=== PATIENT | male | born 1960 | race Caucasian/White ===

== ENCOUNTER 2018-04-12 05:33 | Emergency (ER) | payer OTHER ==
[2018-04-12] MEDS ORDERED: Aspirin 81 mg CHEW TAB* 81 MG TAB.CHEW PO ONE (05:57)
--- OUTSIDE RECORDS SUMMARY | 2018-04-12 06:16 | XMS REPORT | Continuity of Care Document ---
:1960 External Reference #:[id number] Author Name Catia Dallas Care Team Providers Name Role Phone Lindsay Bethea MD Primary Care Physician Unavailable Payers Type Date Identification Numbers Payment Provider Subscriber Policy Number: [id number] [employer] Sanjeev Perales [employer] Number: [id number] [address] PayID: [id number] [place] [address] Advance Directives Description No Information Available Problems Date Description Provider Status Onset: 09/06/2015 Cardiomyopathy, unspecified Nba Euceda MD, [facility], Active [facility] Onset: 11/12/2017 Lumbar radiculopathy Yovany Swann M.D. Active Onset: 04/01/2018 Polyneuropathy Aaron Baltazar M.D. Active Onset: 04/01/2018 Skin sensation disturbance Aaron Baltazar M.D. Active Onset: 04/01/2018 Low back pain Aaron Baltazar M.D. 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 in winter pt uses recumenbent bike. Allergies, Adverse Reactions, Alerts Date Description Reaction Status Severity Comments 09/06/2015 Soma Active rash/swelling 06/08/2016 Statins Myalgias Active 06/18/2017 Wade Inhibitors [facility] Active Medications Medication Date Status Form Strength Qnty SIG Indications Ordering Provider [id number] 03/08/ Active Chewtabs 1mg 90uni take one Raimundo 2017 ts capsule/table odell Mittal daily M.DLaura sublingually Candesartan 05/24/ Active Tablets 8mg 90tab i by mouth I42.9 Nba Lawson Cilexetil 2018 s daily [facility] Metoprolol 06/08/ Active Tablets ER 50mg 90tab 1 by mouth I51.81 Nba Lawson Succinate ER 2017 24HR s every day MD Euceda FACC, [facility]NABEL Melatonin / Active Capsules 5mg 1 by mouth Unknown 0000 every night prn Fluticasone / Active Suspension 50mcg/Act 2 sprays each Unknown Propionate 0000 nostril daily as needed Tylenol 8 / Active Tablets ER 650mg two tablets Unknown Hour 0000 every 6 hours Arthritis as needed for Pain pains Lisinopril 12/06/ Hx Tablets 10mg 30tab 1 by mouth Nba Lawson 2017 - s every day Sodbirgit, 05/24/ RUBINA PARDO, 2017 [facility] Metoprolol 10/10/ Hx Tablets ER 50mg 90tab 50 mg by I51.81 Nba Lawson Succinate ER 2016 - 24HR s mouth every Sodums, together RUBINA PARDO, 2016 with 25 mg [facility] Metoprolol 09/05/ Hx Tablets ER 25mg 180ta 1 by mouth I42.9 Nba Long. 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1 kg/m2 03/25/2018 10:32am Height 68 inches 5'8" Weight 179.00 lb Heart Rate 88 /min radial, regular BP Systolic 130 mmHg rt arm BP Diastolic 75 mmHg rt arm BMI (Body Mass Index) 27.2 kg/m2 03/25/2018 10:29am Height 68 inches 5'8" Weight 179.50 lb Heart Rate 88 /min radial, regular BP Systolic Sitting 130 mmHg rt arm BP Diastolic Sitting 75 mmHg rt arm BMI (Body Mass Index) 27.3 kg/m2 03/08/2018 9:50am Height 68 inches 5'8" Weight 172.50 lb Heart Rate 88 /min BP Systolic 112 mmHg BP Diastolic 72 mmHg Pain Level 2 O2 % BldC Oximetry 98 % BMI (Body Mass Index) 26.2 kg/m2 02/08/2018 8:47am Height 68 inches 5'8" Weight 176.25 lb Heart Rate 84 /min BP Systolic Sitting 110 mmHg BP Diastolic Sitting 68 mmHg Respiratory Rate 14 /min Body Temperature 98.5 F Pain Level 1 BMI (Body Mass Index) 26.8 kg/m2 11/28/2017 3:12pm Height 68 inches 5'8" Weight 170.00 lb BP Systolic Sitting 122 mmHg BP Diastolic Sitting 60 mmHg Pain Level 4 BMI (Body Mass Index) 25.8 kg/m2 11/12/2017 10:56am Height 68 inches 5'8" Weight 170.00 lb BP Systolic Sitting 130 mmHg BP Diastolic Sitting 70 mmHg Pain Level 3 BMI (Body Mass Index) 25.8 kg/m2 11/07/2017 3:53pm Height 68 inches 5'8" Weight 170.75 lb Heart Rate 72 /min BP Systolic Sitting 114 mmHg BP Diastolic Sitting 82 mmHg Respiratory Rate 16 /min BMI (Body Mass Index) 26.0 kg/m2 06/18/2017 9:22am Height 68 inches 5'8" Weight 176.00 lb w/ shoes Heart Rate 74 /min BP Systolic Sitting 118 mmHg lue large cuff BP Diastolic Sitting 84 mmHg lue large cuff BP Systolic Standing 124 mmHg lue large cuff BP Diastolic Standing 78 mmHg lue large cuff Respiratory Rate 18 /min BMI (Body Mass Index) 26.8 kg/m2 Ejection Fraction 50-55% echo 06/11/17 05/24/2017 1:00pm Height 68 inches 5'8" Weight 175.00 lb w/ boots Heart Rate 68 /min BP Systolic Sitting 122 mmHg lue reg cuff BP Diastolic Sitting 82 mmHg lue reg cuff BP Systolic Standing 132 mmHg lue reg cuff BP Diastolic Standing 78 mmHg lue reg cuff Respiratory Rate 18 /min BMI (Body Mass Index) 26.6 kg/m2 Ejection Fraction 50-55% echo 12/04/16 11/30/2016 11:24am Height 68 inches 5'8" Weight 166.00 lb with shoes Heart Rate 70 /min BP Systolic Sitting 112 mmHg rue reg cuff BP Diastolic Sitting 70 mmHg rue reg cuff BP Systolic Standing 120 mmHg rue reg cuff BP Diastolic Standing 74 mmHg rue reg cuff Respiratory Rate 16 /min BMI (Body Mass Index) 25.2 kg/m2 Ejection Fraction 35-40% echo 08/30/15 06/08/2016 12:52pm Height 68 inches 5'8" Weight 170.00 lb w/ shoes Heart Rate 72 /min reg BP Systolic Sitting 130 mmHg Rue, reg cuff BP Diastolic Sitting 74 mmHg Rue, reg cuff Respiratory Rate 16 /min BMI (Body Mass Index) 25.8 kg/m2 Ejection Fraction 45-50% as of 09/28/15 echo 12/13/2015 2:55pm Height 68 inches 5'8" Weight 159.00 lb Heart Rate 68 /min 78 BP Systolic Sitting 110 mmHg left arm, reg cuff BP Diastolic Sitting 80 mmHg left arm, reg cuff BP Systolic Standing 92 mmHg left arm, reg cuff BP Diastolic Standing 72 mmHg left arm, reg cuff Respiratory Rate 16 /min BMI (Body Mass Index) 24.2 kg/m2 Ejection Fraction 45-50% 09/28/15 10/11/2015 2:52pm Height 68 inches 5'8" Weight 159.00 lb Heart Rate 72 /min 78 BP Systolic Sitting 110 mmHg right arm, reg cuff BP Diastolic Sitting 78 mmHg right arm, reg cuff BP Systolic Standing 104 mmHg right arm, reg cuff BP Diastolic Standing 78 mmHg right arm, reg cuff Respiratory Rate 16 /min BMI (Body Mass Index) 24.2 kg/m2 Ejection Fraction 45-50% 08/30/15 09/06/2015 2:43pm Height 68 inches 5'8" Weight 158.00 lb Heart Rate 84 /min 94 BP Systolic Sitting 104 mmHg right arm, reg cuff BP Diastolic Sitting 78 mmHg right arm, reg cuff BP Systolic Standing 102 mmHg right arm, reg cuff BP Diastolic Standing 78 mmHg right arm, reg cuff Respiratory Rate 16 /min BMI (Body Mass Index) 24.0 kg/m2 Ejection Fraction 35-40% 08/30/15 Results Test Date Facility Test Result H/L Range Note Vitamin B12 And 02/08/2018 [facility] Vitamin B12 305 pg/mL N 180-[address] [place] [address] [phone] Folic Acid (Folate) 15.68 ng/mL >3.99 Laboratory test 02/08/2018 [facility] Creatine 219 U/L N 10- 223 finding Kinase(CK) [place] [address] [phone] Aldolase 8.3 U/L Abnormal <7.7 2 Erythrocyte Sed Rate 6 mm/Hr N 0-20 C Reactive Protein 3.84 mg/L N <8.01 Anca AB Ser If 02/08/2018 [facility] C-Anca [place] [address] [phone] P-Anca Negative Negative 3 Laboratory test 02/08/2018 [facility] Angiotensin 41 U/L 8 - 53 4 [place] [address] [phone] Ferritin 129.1 ng/mL N 24-336 Protein 02/08/2018 [facility] Total 7.2 g/dL 6.3 - [address] Protein(Pep) 7.9 [place] [address] [phone] Albumin 3.9 g/dL 3.4-4.7 Alpha-1 Globulin 0.2 g/dL 0.1-0.3 Alpha-2 Globulin 0.8 g/dL 0.6-1.0 Beta Globulin 1.2 g/dL 0.7-1.2 Gamma Globulin 1.2 g/dL 0.6-1.6 Albumin/Globulin Ratio 1.15 Impression See Comment 5 Laboratory test 02/08/2018 [facility] Thyroperoxidase AB 1.78 IU /mL N <[address] [place] [address] [phone] TSH (Thyroid Stim Horm) 1.88 mcIU/mL N 0.34-5.60 Cortisol 6.06 g/dL 6 Platelet Count 11/23/2017 [facility] Platelet Count 239 10^3/uL N [address] [place] [address] [phone] Mean Platelet Volume 8.5 um3 N 7.4-10.4 Inr/Protime 11/23/2017 [facility] Inr 0.90 N 0.77-[address] [place] [address] [phone] Laboratory test 11/23/2017 [facility] Partial Thrombo 31.3 N 26.0-36.3 finding [facility] [place] [address] [phone] Laboratory test 05/24/2017 [facility] B-Type 15 pg/mL [address] [place] [address] Peptide BNP [phone] 1 Normal Range 180 to 914 Indeterminate Range 145 to 180 Deficient Range <145 2 This result may be falsely elevated. Hemoglobin contamination was observed in this sample, and hemolysis increases Aldolase results. Interpret results with caution. Test Performed by: [facility] - [address] [address] 3 Negative for cANCA and pANCA patterns by immunofluorescence. ADDITIONAL INFORMATION This test was developed and its performance characteristics determined by [facility] in a manner consistent with CLIA requirements. This test has not been cleared or approved by the U.S. Food and Drug Administration. Test Performed by: [facility] - [facility] [address] [place] [address] 4 Test Performed by: [facility] - [address] [address] 5 RESULT: No apparent monoclonal protein on serum electrophoresis. Test Performed by: [facility] - [facility] [address] [place] [address] 6 AM 8.7-22.4 PM <10 7 >100 to <200 pg/mL: likely compensated congestive heart failure (CHF) 200 to 400 pg/mL: likely moderate CHF >400 pg/mL: likely moderate to severe CHF Procedures Date Code Description Status 06/11/2017 35121 ECHO Transthorasic Realtime 2D W Doppler & Color Flow Hosp Completed 06/11/2017 93318 ECHO Transthorasic Realtime 2D W Doppler & Color Flow Hosp Completed 05/24/2017 68061 EKG Tracing & Interpretation Completed 12/04/2016 84381 Echocardiogram, Limited Study Completed 09/28/2015 46717 ECHO Transthorasic Realtime 2D W Doppler & Color Flow Hosp Completed 09/06/2015 25008 EKG Tracing & Interpretation Completed 08/31/2015 86822 EKG, Interpretation Only Completed 08/30/2015 51274 Left Heart Cath. Incl S/I Coronaries, Angio S/I V Gram If Completed Done 08/30/2015 55758 ECHO Transthorasic Realtime 2D W Doppler & Color Flow Hosp Completed Encounters Type Date Location Provider Dx Diagnosis Office Visit 03/08/2018 Rheumatology Raimundo Mittal, R20.8 Other disturbances 9:40a Services Of [facility] Robles of skin sensation M54.5 Low back pain M54.2 Cervicalgia E53.8 Deficiency of other specified B group vitamins Office Visit 02/08/2018 9:00a Rheumatology Services Raimundo Mittal M54.5 Low back Of Michael M.DLaura pain R20.8 Other disturbances of skin sensation M53.3 Sacrococcygeal disorders, not elsewhere classified M79.10 Myalgia, unspecified site M54.2 Cervicalgia Office Visit 11/28/2017 Neurosurgery Yovany M54.16 Radiculopathy, 3:00p Services [facility] Swann M.D. lumbar region Office Visit 11/12/2017 Neurosurgery Yovany M54.16 Radiculopathy, 11:10a Services Of [facility] Swann M.D. lumbar region Office Visit 11/07/2017 Spine Navigator Binta Katz, M48.062 Spinal stenosis, 3:45p Of [facility] PA-C lumbar region with neurogenic claudication Office Visit 06/18/2017 [facility] Nba Hammond42.9 Cardiomyopathy, 9:40a Of Supervisor Contingents AT [facility] MD Kinsey, unspecified [facility], [facility] E78.5 Hyperlipidemia, unspecified Office Visit 05/24/2017 [place] Nba Hammond42.9 Cardiomyopathy, 1:20p Cardiology Of MD Kinsey, unspecified Supervisor Contingents AT [facility], [facility] Office Visit 11/30/2016 [place] Nba Hammond42.9 Cardiomyopathy, 11:20a Cardiology Of MD Kinsey, unspecified Supervisor Contingents AT [facility], [facility] Office Visit 06/08/2016 [place] Nba Lawson I51.81 Takotsubo syndrome 1:20p Cardiology Of MD Kinsey, Supervisor Contingents AT [facility], [facility] E78.5 Hyperlipidemia, unspecified Office Visit 12/13/2015 3:00p [facility] Nba Lawson I51.81 Takotsubo Of Supervisor Contingents AT [facility] MD Kinsey, syndrome [facility], [facility] Office Visit 10/11/2015 2:40p [facility] Nba Lawson I51.81 Takotsubo Of Supervisor Contingents AT [facility] MD Kinsey, syndrome [facility], [facility] Office Visit 09/06/2015 3:00p [facility] Nba Lawson I42.9 Cardiomyopathy, Of Supervisor Contingents AT [facility] MD Kinsey, unspecified FACC, [facility] Office Visit 09/01/2015 3:33p [facility] Song Whitt I42.Pinky Cardiomyopathy, Of Supervisor Contingents AT [facility] Margaret, FACC, unspecified [facility] I24.9 Acute ischemic heart disease, unspecified Office Visit 08/31/2015 3:30p [facility] Song Whitt I24.9 Acute ischemic Of Supervisor Contingents AT [facility] Margaret, FACC, heart disease, [facility] unspecified R94.31 Abnormal electrocardiogram [ECG] [EKG] Office Visit 08/30/2015 3:33p [facility] Nba Lawson R07.9 Chest pain, Of Supervisor Contingents AT [facility] MD Kinsey, unspecified FACC, [facility] R94.31 Abnormal electrocardiogram [ECG] [EKG] Plan of Treatment Future Appointment(s):10/07/2018 9:45 am - Aaron Baltazar M.D. at [facility]04/01/2018 - Aaron Baltazar M.D.M54.5 Low back painFollow up:Follow up in 6 monthsRecommendations:Call me with any problems or oxftvigrB50.8 Other disturbances of skin gvwptdjrdT69.9 Polyneuropathy, unspecified
--- OUTSIDE RECORDS SUMMARY | 2018-04-12 06:16 | XMS REPORT | Continuity of Care Document ---
:1960 External Reference #:[id number] Author Name Millicent Alfonso Care Team Providers Name Role Phone Lindsay Bethea MD Primary Care Physician Unavailable Payers Type Date Identification Numbers Payment Provider Subscriber Policy Number: [id number] [employer] Sanjeev Perales Group Number: [id number] [address] PayID: [id number] [place] [address] Advance Directives Description No Information Available Problems Date Description Provider Status Onset: 09/06/2015 Cardiomyopathy, unspecified Nba Euceda MD, [facility], Active [facility] Onset: 11/12/2017 Lumbar radiculopathy Yovany [...] Marital Status 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 Tobacco Use Start: Unknown Never Smoked [...] 06/08/2016 Statins Myalgias Active 06/18/2017 Wade Inhibitors [facility] Active Medications Medication Date Status Form Strength Qnty SIG Indications Ordering Provider [id number] 03/08/ Active Chewtabs 1mg 90uni take one Raimundo 2017 ts capsule/table odell Mittal daily M.DLaura sublingually Candesartan 05/24/ Active Tablets 8mg 90tab i by mouth I42.9 Nba Lawson Cilexetil 2018 s daily MD Euceda [facility], [facility] Metoprolol 06/08/ Active Tablets ER 50mg 90tab [...] Hx Tablets DR 75mg daily or as [place], Sodium 0000 - directed 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 Famotidine / Hx Tablets 20mg 1 by mouth Unknown 0000 - every day as 05/24/ needed for 2018 heartburn Ranitidine / Hx Tablets 75mg 1 tablet Unknown Acid A[employer]P Mechanic 0000 - twice daily 2017 Meloxicam / [...] H/L Range Note Vitamin B12 And 02/08/2018 [facility] Vitamin B12 305 pg/mL N 180-[address] [place] [address] [phone] Folic Acid (Folate) 15.68 ng/mL >3.99 Laboratory test 02/08/2018 [facility] Creatine 219 U/L N 10- 223 finding Kinase([place]) [place] [address] [phone] Aldolase 8.3 U/L Abnormal <7.7 2 Erythrocyte Sed Rate 6 mm/Hr N 0-20 C Reactive Protein 3.84 mg/L N <8.01 Anca AB Ser If 02/08/2018 [facility] C-An[place] [address] [phone] P-Anca Negative Negative 3 Laboratory test 02/08/2018 [facility] Angiotensin 41 U/L 8 - 53 4 [place] [address] [phone] Ferritin 129.1 ng/mL N 24-336 Protein 02/08/2018 [facility] Total 7.2 g/dL 6.3 - [address]oresis [address] Protein(Pep) 7.9 [place] [address] [phone] Albumin 3.9 g/dL 3.4-4.7 Alpha-1 Globulin 0.2 g/dL 0.1-0.3 Alpha-2 Globulin 0.8 g/dL 0.6-1.0 Beta Globulin 1.2 g/dL 0.7-1.2 Gamma Globulin 1.2 g/dL 0.6-1.6 Albumin/Globulin Ratio 1.15 Impression See Comment 5 Laboratory test 02/08/2018 [facility] Thyroperoxidase AB 1.78 IU /mL N <[address] [place] [address] [phone] TSH (Thyroid Stim Horm) 1.88 mcIU/mL N 0.34-5.60 Cortisol 6.06 g/dL 6 Platelet Count 11/23/2017 [facility] Platelet Count 239 10^3/uL N 150[address] [place] [address] [phone] Mean Platelet Volume 8.5 um3 N 7.4-10.4 Inr/Protime 11/23/2017 [facility] Inr 0.90 N 0.77-[address] [place] [address] [phone] Laboratory test 11/23/2017 [facility] Partial Thrombo 31.3 N 26.0-36.3 finding [facility] [place] [place] [address] [phone] Laboratory test 05/24/2017 [facility] B-Type 15 pg/mL [address] [place] [address] Peptide BNP [phone] 1 Normal Range 180 to 914 Indeterminate Range 145 to 180 Deficient Range <145 2 This result may be falsely elevated. Hemoglobin contamination was observed in this sample, and hemolysis increases Aldolase results. Interpret results with caution. Test Performed by: [facility] - [address] [address] 3 Negative for cANCA and pANCA patterns by immunofluorescence. ADDITIONAL INFORMATION This test was developed and its performance characteristics determined by [facility] in a manner consistent with CLIA requirements. This test has not been cleared or approved by the U.S. Food and Drug Administration. Test Performed by: [facility] - [facility] [address] [place] [address] 4 Test Performed by: [facility] - [address] [address] 5 RESULT: No apparent monoclonal protein on serum electrophoresis. Test Performed by: [facility] - [facility] [address] [place] [address] 6 AM 8.7-22.4 PM <10 7 >100 to <200 pg/mL: likely compensated congestive heart failure (CHF) 200 to 400 pg/mL: likely moderate CHF >400 pg/mL: likely moderate to severe CHF Procedures Date Code Description Status 06/11/2017 40540 ECHO Transthorasic Realtime 2D W Doppler & Color Flow Hosp Completed 06/11/2017 75316 ECHO Transthorasic Realtime 2D W Doppler & Color Flow Hosp Completed 05/24/2017 50646 EKG Tracing & Interpretation Completed 12/04/2016 35190 Echocardiogram, Limited Study Completed 09/28/2015 45442 ECHO Transthorasic Realtime 2D W Doppler & Color Flow Hosp Completed 09/06/2015 01942 EKG Tracing & Interpretation Completed 08/31/2015 59360 EKG, Interpretation Only Completed 08/30/2015 53282 Left Heart Cath. Incl S/I Coronaries, Angio S/I V Gram If Completed Done 08/30/2015 56573 ECHO Transthorasic Realtime 2D W Doppler & [...] Binta Katz, M48.062 Spinal stenosis, 3:45p Of [facility] PA-C lumbar region with neurogenic claudication Office Visit 06/18/2017 [facility] Nba Hammond42.9 Cardiomyopathy, 9:40a Of Scrap Baler AT [facility] MD Kinsey, unspecified FACC, [facility] E78.5 Hyperlipidemia, unspecified Office Visit 05/24/2017 [place] Nba Hammond42.9 Cardiomyopathy, 1:20p Cardiology Of MD Kinsey, unspecified Scrap Baler AT [facility], [facility] Office Visit 11/30/2016 [place] Nba Hammond42.9 Cardiomyopathy, 11:20a Cardiology Of MD Kinsey, unspecified Scrap Baler AT [facility], [facility] Office Visit 06/08/2016 [place] Nba Lawson I51.81 Takotsubo syndrome 1:20p Cardiology Of MD Kinsey, Scrap Baler AT [facility], [facility] E78.5 Hyperlipidemia, unspecified Office Visit 12/13/2015 3:00p [facility] Nba Lawson I51.81 Takotsubo Of Scrap Baler AT [facility] MD Kinsey, syndrome FACC, [facility] Office Visit 10/11/2015 2:40p [facility] Nba Lawson I51.81 Takotsubo Of Scrap Baler AT [facility] MD Kinsey, syndrome FACC, [facility] Office Visit 09/06/2015 3:00p [facility] Nba Lawson I42.9 Cardiomyopathy, Of Scrap Baler AT [facility] MD Kinsey, unspecified FACC, [facility] Office Visit 09/01/2015 3:33p [facility] Song Whitt I42.Pinky Cardiomyopathy, Of Scrap Baler AT [facility] Margaret, FACC, unspecified [facility] I24.9 Acute ischemic heart disease, unspecified Office Visit 08/31/2015 3:30p [facility] Song Whitt I24.9 Acute ischemic Of Scrap Baler AT [facility] Margaret, FACC, heart disease, [facility] unspecified R94.31 Abnormal electrocardiogram [ECG] [EKG] Office Visit 08/30/2015 3:33p [facility] Nba Lawson R07.9 Chest pain, Of Scrap Baler AT [facility] MD Kinsey, unspecified FACC, [facility] R94.31 Abnormal electrocardiogram [ECG] [EKG] Plan of Treatment Future Appointment(s):10/07/2018 9:45 am - Aaron Baltazar M.D. at [place] [facility]03/25/2018 - REGULO Brown-CM54.5 Low back painR20.8 Other disturbances of skin sensationFollow up:Has referral for neurology, follow up here as needed
--- NOTE | 2018-04-12 06:20 | ED ---
HPI Chest Pain - HPI Summary HPI Summary: Patient is a 57yo M with a hx of viral myocarditis in 1999 and takosubo in 2016 presenting to the ED with left sided anterior chest pain radiating to the L posterior back/shoulder and into the left side of the cheek. Symptoms began at 445am and resolved just [employer]. He states he does not have any discomfort at this time, but continues to feel where he had the chest "aching" earlier. He states he has had a mild cold in the last week or so and had a sick contact with RSV at home. Cath by Dr. Euceda in 2016 was clean. He takes no cardiac medications. He was recently established with Dr. Linda at [facility]. He was dx with cellulitis of the hand yesterday and placed on Augmentin, which completely resolved the cellulitis in the hand. Denies any other concerns today. Denies SOB, urinary symptoms, cough, fevers, sweats or chills. - History of Current Complaint Chief Complaint: EDChestPainROMI Time Seen by Provider: 04/12/18 05:56 Hx Obtained From: Patient Onset/Duration: Started Hours Ago Timing: Constant Initial Severity: Moderate Current Severity: Moderate Pain Intensity: 2 Pain Scale Used: 0-10 Numeric Chest Pain Location: Left Anterior Chest Pain Radiates: Yes Chest Pain Radiates To:: Back Character: Dull/Aching Aggravating Factor(s): Nothing Alleviating Factor(s): Spontaneous Resolution Associated Signs and Symptoms: Negative: Vision Changes, Recent Stress, Headaches, Numbness, Lightheadedness, Diaphoresis, Nausea, Palpitations, Calf Pain/Swelling, Nasal Congestion - Risk Factors Pulmonary Embolism Risk Factors: Negative TAD Risk Factors: Negative - Additional Pertinent History Primary Care Physician: [id number] - Allergy/Home Medications Allergies/Adverse Reactions: Allergies Allergy/AdvReac Type Severity Reaction Status Date / Time HALI Inhibitors Allergy Unknown Verified 04/12/18 06:40 Reaction Details carisoprodol [From Soma] Allergy See Comment Verified 04/12/18 06:40 Suznldf-Yrp-Fxi Reductase Allergy Unknown Verified 04/12/18 06:40 Inhibitor Reaction Details Home Medications: Home Medications Amoxicillin/Clavulanate TAB* [Augmentin TAB 875*] 1 tab PO BID 04/12/18 [ History Confirmed 04/12/18] PMH/Surg Hx/FS Hx/Imm Hx Previously Healthy: Yes Endocrine/Hematology History: Denies: Hx Diabetes Cardiovascular History: Reports: Other Cardiovascular Problems/Disorders - viral myocarditis in 2000 requiring balloon pump Denies: Hx Congestive Heart Failure, Hx Hypertension History: Denies: Hx Renal Disease Musculoskeletal History: Reports: Hx Back Problems - back pain Sensory History: Reports: Hx Contacts or Glasses Opthamlomology History: Reports: Hx Contacts or Glasses - Surgical History Surgery Procedure, Year, and Place: -1968 Hx Anesthesia Reactions: No - Immunization History Hx Pertussis Vaccination: No Immunizations Up to Date: Yes Infectious Disease History: No Infectious Disease History: Denies: Traveled Outside the [place] in Last 30 Days - Social History Occupation: Employed Full-time Lives: With Family Alcohol Use: None Hx Substance Use: No Substance Use Type: Reports: None Hx Tobacco Use: No Smoking Status (MU): Never Smoked Tobacco Review of Systems Constitutional: Negative Negative: Fever, Chills, Fatigue, Skin Diaphoresis Positive: Chest Pain - radiating to the L posterior shoulder. Negative: Palpitations Negative: Shortness Of Breath, Cough Genitourinary: Negative Positive: no symptoms reported, see HPI Negative: Arthralgia, Myalgia Skin: Negative Neurological: Negative All Other Systems Reviewed And Are Negative: Yes Physical Exam Triage Information Reviewed: Yes Vital Signs On Initial Exam: Initial Vitals Temp Pulse Resp BP Pulse Ox 97.8 F 72 16 144/89 98 04/12/18 05:35 04/12/18 05:35 04/12/18 05:35 04/12/18 05:35 04/12/18 05:35 Vital Signs Reviewed: Yes Appearance: Positive: Well-Appearing, Well-Nourished Skin: Positive: Warm, Skin Color Reflects Adequate Perfusion Head/Face: Positive: Normal Head/Face Inspection Eyes: Positive: EOMI, VALERIE, Conjunctiva Clear Neck: Positive: Supple, No Lymphadenopathy Respiratory/Lung Sounds: Positive: Clear to Auscultation, Breath Sounds Present Cardiovascular: Positive: RRR, Pulses are Symmetrical in both Upper and Lower Extremities. Negative: Bradycardia, Tachycardia, Leg Edema Left, Leg Edema Right Musculoskeletal: Positive: Normal, Strength/ROM Intact Neurological: Positive: Sensory/Motor Intact, Alert, Oriented to Person Place, Time, CN Intact II-III, Speech Normal Psychiatric: Positive: Normal AVPU Assessment: Alert Diagnostics - Vital Signs Vital Signs Temp Pulse Resp BP Pulse Ox 04/12/18 06:00 77 19 98 04/12/18 05:52 129/89 04/12/18 05:45 73 99 04/12/18 05:35 97.8 F 72 16 144/89 98 - Laboratory Result Diagrams: 04/12/18 06:17 04/12/18 06:17 Lab Statement: Any lab studies that have been ordered have been reviewed, and results considered in the medical decision making process. Chest Pain Course/Dx - Course Course Of Treatment: During the course treatment, the patient is evaluated for left-sided anterior chest pain radiating through to the back. He states he has had a similar episode in the past when he was diagnosed with Takosubo this also had a history of myocarditis. Labs obtained including a troponin which was 0.00. Chest x-ray obtained which shows no acute cardiopulmonary findings. Vital signs are stable. EKG shows normal sinus rhythm. The patient is asymptomatic on arrival and continues to be asymptomatic throughout his stay. BNP is 8. Discussed findings with patient. At this time I believe he is safe to be discharged home with a follow-up to Dr. Mack in the next 3-4 days. He is to return to the ED if he has any worsening or changing symptoms. - Chest Pain Differential Diagnosis/HQI/PQRI: Acute VT, ACS, Angina, Chest Wall - Diagnoses Provider Diagnoses: Atypical chest pain Discharge - Sign-Out/Discharge Documenting (check all that apply): Patient Departure - Discharge Plan Condition: Stable Disposition: HOME Referrals: Lindsay Bethea MD [Primary Care Provider] - Additional Instructions: Please follow up with Dr. Linda. If any symptoms become worse - return to the ED - Billing Disposition and Condition Condition: STABLE Disposition: Home
[2018-04-12 06:31] LABS: Hematocrit 47 % (42-52); Hemoglobin 16.1 g/dl (14.0-18.0); Mean Corpuscular HGB Conc 34 g/dl (31-36); Mean Corpuscular Hemoglobin 29 pg (27-31); Mean Corpuscular Volume 84 fL (80-94); Mean Platelet Volume 8.7 fL (7.4-10.4); Platelet Count 180 10^3/ul (150-450); Red Blood Count 5.54 10^6/ul (4.00-5.40); Red Cell Distribution Width 14 % (10.5-15); White Blood Count 6.7 10^3/ul (3.5-10.8)
[2018-04-12 06:42] LABS: INR 0.94 (0.77-1.02)
[2018-04-12 06:49] LABS: Albumin 3.9 g/dL (3.2-5.2); Albumin/Globulin Ratio 1.3 (1-3); BUN/Creatinine Ratio 20.5 (8-20); Calcium 9.1 mg/dL (8.6-10.3); EGFR Non-African American 102.6 (>60); Globulin 2.9 g/dL (2-4); Magnesium 2.1 mg/dL (1.9-2.7); Potassium 3.9 mmol/L (3.5-5.0); Total Bilirubin 0.6 mg/dL (0.2-1.0); Total Protein 6.8 g/dL (6.4-8.9)
[2018-04-12 06:54] LABS: Myoglobin 19.6 ng/mL (17.4-105.7)
[2018-04-12 06:56] LABS: ABS Basophils 0 10^3/ul (0-0.2); ABS Eosinophils 0.1 10^3/ul (0-0.6); ABS Lymphocytes 3.9 10^3/ul (1.0-4.8); ABS Monocytes 0.6 10^3/ul (0-0.8); ABS Neutrophils 2.1 10^3/ul (1.5-7.7); ABS Nucleated RBC 0 10^3/ul; Eosinophil % 1.5 %; Lymphocyte % 58.3 %; Nucleated Red Blood Cells % 0.4
[2018-04-12 07:29] LABS: Urine Appearance Clear; Urine Bilirubin Negative (Negative); Urine Blood Negative (Negative); Urine Color Straw; Urine Glucose Negative (Negative); Urine Ketones Negative (Negative); Urine Nitrite Negative (Negative); Urine Protein Negative (Negative); Urine Specific Gravity 1.006 (1.010-1.030); Urine Urobilinogen Negative (Negative)
[2018-04-12 08:16] VITALS: BP 113/87
== END 2018-04-12 08:15 | disposition home or self-care (01) ==
LOC: ED 05:33
DX: R07.89 Other chest pain (principal)
CPT/HCPCS: 36415; 71046; 80053; 81003; 82550; 82553; 83605; 83735; 83874; 83880; 84484; 85025; 85610; 85730; 93005; 99283; A9270-GY